=== PATIENT | male | born 1960 | race Caucasian/White ===

== ENCOUNTER 2020-12-03 10:18 | Observation (INO) ==
[2020-12-03 10:45] LABS: Basophils % 0.2 %; Eosinophils # 0.2 K/mcL (0.0-0.6); Eosinophils % 2.6 %; Hematocrit 25.8 % (37.5-50.1); Hemoglobin 8.1 g/dL (12.9-16.9); Immature Granulocytes % 0.3 % (0-4); Lymphocytes # 1.5 K/mcL (0.6-4.6); Lymphocytes % 17.2 %; Mean Corpuscular HGB Conc 31.4 g/dL (31.6-35.5); Mean Corpuscular Hemoglobin 29.5 pg (28.0-33.3); Mean Corpuscular Volume 93.8 fL (83.0-100.0); Mean Platelet Volume 10.3 fL (9.4-12.4); Monocytes # 0.7 K/mcL (0.0-1.3); Monocytes % 7.5 %; Neutrophils # 6.5 K/mcL (1.6-8.9); Platelet Count 185 K/mcL (140-400); Red Blood Count 2.75 M/mcL (4.19-5.50); Red Cell Distribution Width 15.2 % (11.5-14.5); Segmented Neutrophils % 72.2 %
[2020-12-03 11:07] LABS: Blood Urea Nitrogen 33 mg/dL (8-23); Calcium 9.1 mg/dL (8.6-10.3); Carbon Dioxide 22 mEq/L (23-29); Chloride 104 mEq/L (98-107); Glucose 144 mg/dL (70-105); Osmolality,Calculated 290 (280-300); Potassium 4.5 mEq/L (3.5-5.1); Sodium 135 mEq/L (136-145); Troponin I < 0.03 ng/mL (< 0.04)
[2020-12-03 11:46] LABS: BUN/Creatinine Ratio 21 (6-26); eGFR For African Americans 55 (> 60); eGFR For Non-African Americans 45 (> 60)
[2020-12-03 11:49] LABS: Bilirubin,Urine Negative (Negative); Blood,Urine Negative (Negative); Clarity,Urine Clear (Clear); Color,Urine Yellow (Yellow); Glucose,Urine (UA) Normal (Normal); Ketones,Urine Negative (Negative); Leukocyte Esterase,Urine Negative (Negative); Nitrite,Urine Negative (Negative); PH,Urine 5.5 pH Units (5.0-8.0); Protein,Urine Trace mg/dL (Neg-Trace); Specific Gravity,Urine 1.021 (1.010-1.025); Urobilinogen,Urine Normal (Normal)
[2020-12-03] MEDS ORDERED: D5% in Water 1,000 ML IVC PRN (13:07)
[2020-12-03] MEDS ORDERED: Acetaminophen 325 MG TABLET PO PRN (13:07)
[2020-12-03] MEDS ORDERED: *HR* Dextrose 50 % in Water (Vial) 50 ML VIAL IVP PRN (13:07)
[2020-12-03] MEDS ORDERED: Naloxone 0.4 MG/ML INJ IVP PRN (13:07)
[2020-12-03] MEDS ORDERED: Ondansetron ODT 4 MG TAB.RAPDIS SL PRN (13:07)
[2020-12-03] MEDS ORDERED: Dextrose Gel 15 GM/37.5 ML TUBE PO PRN ×2 (13:07)
[2020-12-03] MEDS ORDERED: Perflutren Lipid Microsphere 1.3 ML in 0.9 % Sodium Chloride 8.7 ML IVP PRN (13:14)
[2020-12-03] MEDS ORDERED: 0.9 % Sodium Chloride 250 ML IVC SCH (13:15)
[2020-12-03] MEDS ORDERED: 0.9 % Sodium Chloride 250 ML ONE (13:50)
[2020-12-03] MEDS ORDERED: hydrOXYzine pamoate 25 MG CAPSULE PO PRN (17:36)
[2020-12-03] MEDS: Ringers Solution, Lactated 1,000 ML IVC SCH (18:54)
[2020-12-03] MEDS: Insulin LISPRO 300 UNITS/3 ML VIAL SUBQ SCH ×2 (19:00→20:35)
[2020-12-03] MEDS: traZODone 50 MG TABLET PO SCH (20:28)
[2020-12-03] MEDS: Lactobacillus 1 EACH CAP.SPRINK PO SCH (20:29)
[2020-12-03] MEDS: Cefdinir 300 MG CAPSULE PO SCH (20:29)
[2020-12-03] MEDS: Doxycycline 100 MG CAPSULE PO SCH (20:30)
[2020-12-03] MEDS: Melatonin 3 MG TABLET PO SCH (20:30)
[2020-12-03] MEDS: *HR* HYDROcodone/Acet 5/325 mg TABLET PO PRN (20:35)
[2020-12-03] MEDS ORDERED: 0.9 % Sodium Chloride 500 ML IVC PRN (22:37)
[2020-12-04 01:25] LABS: Hematocrit 23.9 % (37.5-50.1); Hemoglobin 7.8 g/dL (12.9-16.9); Mean Corpuscular HGB Conc 32.6 g/dL (31.6-35.5); Mean Corpuscular Volume 91.9 fL (83.0-100.0); Platelet Count 178 K/mcL (140-400); Red Cell Distribution Width 14.8 % (11.5-14.5); White Blood Count 7.3 K/mcL (4.3-11.1)
[2020-12-04 01:47] LABS: BUN/Creatinine Ratio 26 (6-26); Blood Urea Nitrogen 30 mg/dL (8-23); Calcium 8.3 mg/dL (8.6-10.3); Carbon Dioxide 20 mEq/L (23-29); Chloride 106 mEq/L (98-107); Chol/HDL Ratio 2.9 (0-4.9); Cholesterol 58 mg/dL (< 200); Glucose 95 mg/dL (70-105); HDL Cholesterol 20 mg/dL (40-59); LDL Cholesterol,Calculated 22 mg/dL (< 100); Magnesium 1.4 mg/dL (1.6-2.6); Osmolality,Calculated 284 (280-300); Potassium 3.6 mEq/L (3.5-5.1); Sodium 134 mEq/L (136-145); Triglycerides 78 mg/dL (< 150); eGFR For African Americans > 60 (> 60); eGFR For Non-African Americans > 60 (> 60)
[2020-12-04] MEDS: Insulin LISPRO 300 UNITS/3 ML VIAL SUBQ SCH ×4 (07:05→20:55)
[2020-12-04] MEDS: *HR* Enoxaparin 40 MG/0.4 ML SYRINGE SQ SCH (08:17)
[2020-12-04] MEDS: Ringers Solution, Lactated 1,000 ML IVC SCH (08:17)
[2020-12-04] MEDS: Aspirin Enteric Coated 81 MG Tablet PO SCH (08:18)
[2020-12-04] MEDS: Doxycycline 100 MG CAPSULE PO SCH ×2 (08:18→21:04)
[2020-12-04] MEDS: Fluticasone Propionate Nasal 50 MCG/SPRAY BOTTLE NS SCH (08:18)
[2020-12-04] MEDS: Lactobacillus 1 EACH CAP.SPRINK PO SCH ×2 (08:18→21:04)
[2020-12-04] MEDS: Cefdinir 300 MG CAPSULE PO SCH ×2 (08:18→21:04)
[2020-12-04] MEDS: lisinopriL 20 MG TABLET PO SCH (08:19)
[2020-12-04] MEDS: Sennosides 8.6 MG TABLET PO SCH (08:22)
[2020-12-04] MEDS: *HR* HYDROcodone/Acet 5/325 mg TABLET PO PRN (08:30)
[2020-12-04 12:53] LABS: Hemoglobin 7.9 g/dL (12.9-16.9)
[2020-12-04] MEDS: Melatonin 3 MG TABLET PO SCH (21:03)
[2020-12-04] MEDS: traZODone 50 MG TABLET PO SCH (21:03)
[2020-12-05] MEDS: *HR* HYDROcodone/Acet 5/325 mg TABLET PO PRN ×2 (03:53→23:35)
[2020-12-05 06:38] LABS: BUN/Creatinine Ratio 24 (6-26); Blood Urea Nitrogen 20 mg/dL (8-23); Calcium 8.7 mg/dL (8.6-10.3); Carbon Dioxide 22 mEq/L (23-29); Chloride 105 mEq/L (98-107); Glucose 82 mg/dL (70-105); Osmolality,Calculated 282 (280-300); Potassium 3.9 mEq/L (3.5-5.1); Sodium 135 mEq/L (136-145); eGFR For African Americans > 60 (> 60); eGFR For Non-African Americans > 60 (> 60)
[2020-12-05] MEDS: Insulin LISPRO 300 UNITS/3 ML VIAL SUBQ SCH ×4 (08:44→20:48)
[2020-12-05] MEDS: Sennosides 8.6 MG TABLET PO SCH (08:45)
[2020-12-05] MEDS: Aspirin Enteric Coated 81 MG Tablet PO SCH (08:51)
[2020-12-05] MEDS: Cefdinir 300 MG CAPSULE PO SCH ×2 (08:51→20:51)
[2020-12-05] MEDS: Lactobacillus 1 EACH CAP.SPRINK PO SCH ×2 (08:51→20:52)
[2020-12-05] MEDS: Doxycycline 100 MG CAPSULE PO SCH ×2 (08:51→20:51)
[2020-12-05] MEDS: lisinopriL 20 MG TABLET PO SCH (08:52)
[2020-12-05] MEDS: *HR* Enoxaparin 40 MG/0.4 ML SYRINGE SQ SCH (08:52)
[2020-12-05] MEDS: Fluticasone Propionate Nasal 50 MCG/SPRAY BOTTLE NS SCH (09:01)
[2020-12-05 09:12] LABS: Basophils % 0.3 %; Eosinophils # 0.3 K/mcL (0.0-0.6); Eosinophils % 3.2 %; Hematocrit 24.4 % (37.5-50.1); Immature Granulocytes % 0.4 % (0-4); Lymphocytes % 25.5 %; Mean Corpuscular HGB Conc 32.8 g/dL (31.6-35.5); Mean Corpuscular Volume 91.4 fL (83.0-100.0); Mean Platelet Volume 9.8 fL (9.4-12.4); Monocytes # 0.7 K/mcL (0.0-1.3); Monocytes % 8.5 %; Neutrophils # 4.9 K/mcL (1.6-8.9); Platelet Count 204 K/mcL (140-400); Red Blood Count 2.67 M/mcL (4.19-5.50); Red Cell Distribution Width 14.6 % (11.5-14.5); Segmented Neutrophils % 62.1 %; White Blood Count 7.9 K/mcL (4.3-11.1)
[2020-12-05] MEDS: Melatonin 3 MG TABLET PO SCH (20:51)
[2020-12-05] MEDS: traZODone 50 MG TABLET PO SCH (20:52)
[2020-12-06 00:52] LABS: Basophils % 0.1 %; Eosinophils # 0.3 K/mcL (0.0-0.6); Hematocrit 24.6 % (37.5-50.1); Hemoglobin 8.2 g/dL (12.9-16.9); Immature Granulocytes % 0.2 % (0-4); Lymphocytes # 2.4 K/mcL (0.6-4.6); Lymphocytes % 29.7 %; Mean Corpuscular HGB Conc 33.3 g/dL (31.6-35.5); Mean Corpuscular Volume 90.1 fL (83.0-100.0); Mean Platelet Volume 9.6 fL (9.4-12.4); Monocytes # 0.7 K/mcL (0.0-1.3); Monocytes % 8.5 %; Neutrophils # 4.7 K/mcL (1.6-8.9); Platelet Count 233 K/mcL (140-400); Red Blood Count 2.73 M/mcL (4.19-5.50); Red Cell Distribution Width 14.3 % (11.5-14.5); Segmented Neutrophils % 57.5 %; White Blood Count 8.1 K/mcL (4.3-11.1)
[2020-12-06 01:06] LABS: BUN/Creatinine Ratio 21 (6-26); Blood Urea Nitrogen 16 mg/dL (8-23); Calcium 8.5 mg/dL (8.6-10.3); Carbon Dioxide 24 mEq/L (23-29); Chloride 102 mEq/L (98-107); Glucose 86 mg/dL (70-105); Osmolality,Calculated 276 (280-300); Sodium 133 mEq/L (136-145); eGFR For African Americans > 60 (> 60); eGFR For Non-African Americans > 60 (> 60)
[2020-12-06] MEDS: Aspirin Enteric Coated 81 MG Tablet PO SCH (08:22)
[2020-12-06] MEDS: Lactobacillus 1 EACH CAP.SPRINK PO SCH ×2 (08:22→21:59)
[2020-12-06] MEDS: *HR* Enoxaparin 40 MG/0.4 ML SYRINGE SQ SCH (08:22)
[2020-12-06] MEDS: Cefdinir 300 MG CAPSULE PO SCH ×2 (08:22→21:59)
[2020-12-06] MEDS: Insulin LISPRO 300 UNITS/3 ML VIAL SUBQ SCH ×4 (08:22→22:05)
[2020-12-06] MEDS: lisinopriL 20 MG TABLET PO SCH (08:22)
[2020-12-06] MEDS: Doxycycline 100 MG CAPSULE PO SCH ×2 (08:22→21:59)
[2020-12-06] MEDS: Fluticasone Propionate Nasal 50 MCG/SPRAY BOTTLE NS SCH (08:22)
[2020-12-06] MEDS: Sennosides 8.6 MG TABLET PO SCH (08:23)
[2020-12-06] MEDS: traZODone 50 MG TABLET PO SCH (21:59)
[2020-12-06] MEDS: Melatonin 3 MG TABLET PO SCH (21:59)
[2020-12-06] MEDS: *HR* HYDROcodone/Acet 5/325 mg TABLET PO PRN (22:04)
[2020-12-07] MEDS: Doxycycline 100 MG CAPSULE PO SCH ×2 (07:43→21:29)
[2020-12-07] MEDS: lisinopriL 20 MG TABLET PO SCH (07:43)
[2020-12-07] MEDS: Sennosides 8.6 MG TABLET PO SCH (07:43)
[2020-12-07] MEDS: Cefdinir 300 MG CAPSULE PO SCH ×2 (07:43→21:29)
[2020-12-07] MEDS: Lactobacillus 1 EACH CAP.SPRINK PO SCH ×2 (07:43→21:29)
[2020-12-07] MEDS: Aspirin Enteric Coated 81 MG Tablet PO SCH (07:44)
[2020-12-07] MEDS: Insulin LISPRO 300 UNITS/3 ML VIAL SUBQ SCH ×4 (07:45→21:30)
[2020-12-07] MEDS: Fluticasone Propionate Nasal 50 MCG/SPRAY BOTTLE NS SCH (07:45)
[2020-12-07 08:56] LABS: Hematocrit 27.6 % (37.5-50.1); Mean Corpuscular HGB Conc 32.6 g/dL (31.6-35.5); Mean Corpuscular Hemoglobin 29.6 pg (28.0-33.3); Mean Corpuscular Volume 90.8 fL (83.0-100.0); Mean Platelet Volume 9.2 fL (9.4-12.4); Platelet Count 242 K/mcL (140-400); Red Blood Count 3.04 M/mcL (4.19-5.50); Red Cell Distribution Width 14.4 % (11.5-14.5); White Blood Count 8.6 K/mcL (4.3-11.1)
[2020-12-07] MEDS: traZODone 50 MG TABLET PO SCH (21:29)
[2020-12-07] MEDS: Melatonin 3 MG TABLET PO SCH (21:29)
[2020-12-07] MEDS: *HR* HYDROcodone/Acet 5/325 mg TABLET PO PRN (21:38)
[2020-12-08] MEDS: Insulin LISPRO 300 UNITS/3 ML VIAL SUBQ SCH ×2 (07:40→11:48)
[2020-12-08] MEDS: Aspirin Enteric Coated 81 MG Tablet PO SCH (09:30)
[2020-12-08] MEDS: Sennosides 8.6 MG TABLET PO SCH (09:30)
[2020-12-08] MEDS: Doxycycline 100 MG CAPSULE PO SCH (09:30)
[2020-12-08] MEDS: Lactobacillus 1 EACH CAP.SPRINK PO SCH (09:31)
[2020-12-08] MEDS: lisinopriL 20 MG TABLET PO SCH (09:31)
[2020-12-08] MEDS: Cefdinir 300 MG CAPSULE PO SCH (09:31)
[2020-12-08] MEDS: Fluticasone Propionate Nasal 50 MCG/SPRAY BOTTLE NS SCH (09:32)
[2020-12-08 15:09] VITALS: BP 107/68
== END 2020-12-08 16:46 ==
LOC: EMEROOARM 10:18 → 3BNU 10:18 → SUATTDRO 13:29 → 3BNU 14:49
PROVIDERS: ADMIT Internal Medicine; ATTEND Nurse Practitioner